=== PATIENT | male | born 1970 | race American Indian/Alaskan Native ===

== ENCOUNTER 2021-08-19 09:39 | Emergency (ER) | payer OTHER ==
[2021-08-19] MEDS ORDERED: FLUORESCEIN 1 MG STRIP OP ONE (10:10)
[2021-08-19] MEDS ORDERED: BALANCED SALT IRRIG (BSS) OPHTH SOLN 15 ML OU ONE (10:10)
[2021-08-19] MEDS ORDERED: TETRACAINE 0.5% OPHTH SOLN 4ML OU ONE (10:10)
[2021-08-19 10:11] VITALS: BP 151/86
--- NOTE | 2021-08-19 10:11 | Emergency Department Report ---
ED Eye Problem HPI - General Stated complaint: RT EYE ITCHING Source: patient Mode of arrival: Ambulatory Limitations: No Limitations - History of Present Illness Initial comments: 50 YO COMES IN WITH 1 D HX OF RIGHT EYE REDNESS AND ITCHING. NO TRAUMA. REPORTS DISCHARGE AND ITCHING THIS AM DENIES TRAUMA NO KNOWN CONTACT WITH SOMEONE WHO WAS ILL NO RECENT URI AMBULATORY AND NON ILL APPEARING MD chief complaint: other -: Sudden Onset Description: sudden Location: right eye Place: home If Injury: none Eye Symptoms: other Severity: mild Consistency: intermittent Associated Symptoms: none Treatments Prior to Arrival: none - Related Data Previous Rx's Medication Instructions Recorded Last Taken Type Polymyxin B Sulf/Trimethoprim 2 drop OD Q6H #5 day 08/19/21 Unknown Rx [Polytrim Eye Drops] Allergies Allergy/AdvReac Type Severity Reaction Status Date / Time No Known Allergies Allergy Unverified 08/19/21 10:07 ED Review of Systems ROS: Stated complaint: RT EYE ITCHING Other details as noted in HPI Comment: All other systems reviewed and negative ED Past Medical Hx - Past Medical History Previous Medical History?: Yes Hx Diabetes: Yes - Surgical History Past Surgical History?: No - Family History Family history: no significant - Social History Smoking Status: Never Smoker Substance Use Type: None - Medications Home Medications: Home Medications Medication Instructions Recorded Confirmed Last Taken Type Polymyxin B Sulf/Trimethoprim 2 drop OD Q6H #5 day 08/19/21 Unknown Rx [Polytrim Eye Drops] ED Physical Exam - General Limitations: No Limitations General appearance: alert, in no apparent distress - Head Head exam: Present: atraumatic, normocephalic - Eye Eye exam: Present: PERRL, EOMI - ENT ENT exam: Present: mucous membranes moist - Neck Neck exam: Present: normal inspection - Respiratory Respiratory exam: Present: normal lung sounds bilaterally. Absent: respiratory distress - Cardiovascular Cardiovascular Exam: Present: regular rate, normal rhythm. Absent: systolic murmur, diastolic murmur, rubs, gallop - GI/Abdominal GI/Abdominal exam: Present: soft, normal bowel sounds - Rectal Rectal exam: Present: deferred - Extremities Exam Extremities exam: Present: normal inspection - Back Exam Back exam: Present: normal inspection - Neurological Exam Neurological exam: Present: alert, oriented X3 - Psychiatric Psychiatric exam: Present: normal affect, normal mood - Skin Skin exam: Present: warm, dry, intact, normal color. Absent: rash ED Course Vital Signs 08/19/21 10:07 Temperature 98.6 F Pulse Rate 88 Respiratory 18 Rate Blood Pressure 151/86 [Right] O2 Sat by Pulse 100 Oximetry ED Medical Decision Making - Medical Decision Making Vital Signs 08/19/21 10:07 Temperature 98.6 F Pulse Rate 88 Respiratory 18 Rate Blood Pressure 151/86 [Right] O2 Sat by Pulse 100 Oximetry NO INC UPTAKE FLUR. ON STAIN EOMS INTACT [facility] NO TRAUMA NO CONTACTS TDAP UTD DC HOME WITH DC PLAN OF CARE INCLUDING FOLLOWUP / MEDS/DIET AND ACTIVITY PT VERBALIZES UNDERSTANDING - Differential Diagnosis RO FB OR ABRASION R EYE Critical care attestation.: If time is entered above; I have spent that time in minutes in the direct care of this critically ill patient, excluding procedure time. ED Disposition Clinical Impression: Conjunctivitis Disposition: 01 HOME / SELF CARE / HOMELESS Is pt being admited?: No Does the pt Need Aspirin: No Condition: Stable Instructions: How to Use Eye Drops and Eye Ointments Additional Instructions: MEDS ORDERED FOLLOW UP WITH EYE DOCTOR IN 48 HOURS FOR RECHECK REFERRAL BELOW OVER THE COUNTER [facility]EC WILL HELP WITH ITCHING WARM COMPRESSES TO EYE DO NOT RUB THE EYE Prescriptions: Polymyxin B Sulf/Trimethoprim [Polytrim Eye Drops] 2 drop OD Q6H #5 day Referrals: SHILPI SAIIN MD [Staff Physician] - 3-5 Days Time of Disposition: 10:36
[2021-08-19] MEDS ORDERED: ERYTHROMYCIN 5 MG/1 GM OPHTH OINT OU SCH (10:30)
== END 2021-08-19 11:45 | disposition home or self-care (01) ==
LOC: ED 09:39
DX: H10.9 Unspecified conjunctivitis (principal); E11.9 Type 2 diabetes mellitus without complications; Z79.899 Other long term (current) drug therapy
CPT/HCPCS: 99282